=== PATIENT | female | born 1960 | race Caucasian/White ===

== ENCOUNTER 2021-04-26 08:53 | Outpatient (CLI) | payer OTHER | END 2021-04-26 09:16 | disposition home or self-care (01) | LOC: TOM 08:53 | DX: K44.9 Diaphragmatic hernia without obstruction or gangrene (principal); Z12.11 Encounter for screening for malignant neoplasm of colon; Q43.8 Other specified congenital malformations of intestine; K63.5 Polyp of colon ==